=== PATIENT | female | born 1975 | race Hispanic/Latino ===

== ENCOUNTER 2023-03-11 10:11 | Outpatient (CLI) | payer BC, SELFPAY ==
--- NOTE | ~2023-03-11 | CT_ITS ---
EXAMINATION: CT abdomen pelvis w con DATE: 03/11/2023 10:48 INDICATION: Pelvic pain. TECHNIQUE: Computed tomography (CT) of the abdomen and pelvis was performed with 100 mL Omnipaque 350 intravenous contrast. Automated exposure control and iterative reconstruction technique were employe d. The dose-length product was 718.29 mGy-cm. COMPARISON: CT abdomen and pelvis 06/11/2012 FINDINGS: The visualized portions of the lung bases are clear without pneumonia or pleural effusion. The heart size is normal. No pericardial effusion. There is a small sliding hiatal hernia. The liver, gallbladder, spleen, pancreas, adrenal glands, and right kidney are normal. There is focal volume lo ss of left kidney. There are multiple uterine fibroids measuring up to 3.6 cm. There are no dilated l oops of bowel. The appendix is normal. There are no pathologically enlarged lymph nodes. There is no free intraperitoneal fluid. There is mild thoracic and lumbar spondylosis. There is mild osteoarthrit is of the hips. IMPRESSION: 1. Uterine fibroids. 2. Small sliding hiatal hernia. Reviewed, dictated and finalized at location E. 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
[2023-03-11 10:42] LABS: Estimated Glomerular Filt Rate > 60
== END 2023-03-11 10:12 | disposition home or self-care (01) ==
PROVIDERS: PCP Physician Assistant; Visit Provider Physician Assistant
DX: R10.2 Pelvic and perineal pain (principal); D25.9 Leiomyoma of uterus, unspecified; K44.9 Diaphragmatic hernia without obstruction or gangrene
CPT/HCPCS: 74177; Q9967

== ENCOUNTER 2023-03-17 16:05 | Outpatient (CLI) | payer BC, SELFPAY ==
--- NOTE | ~2023-03-17 | US_ITS ---
EXAMINATION: US thyroid DATE: 03/17/2023 17:19 INDICATION: Pain in throat. TECHNIQUE: Multiple ultrasound images of the thyroid were obtained. COMPARISON: Thyroid ultrasound 05/07/2010 FINDINGS: The right thyroid lobe measures 4.4 x 1.7 x 2.0 cm. The left thyroid lobe measures 3.6 x 1.4 x 1.8 c m. In the right thyroid lobe, there is a 2 mm nodule. IMPRESSION: 1. Small thyroid nodule, likely not clinically significant. No follow-up is needed. Reviewed, dictated and finalized at location A. 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 Small thyroid nodule, likely not clinically significant. No follow-up is nee ded.
== END 2023-03-17 16:06 | disposition home or self-care (01) ==
PROVIDERS: PCP Physician Assistant; Visit Provider Physician Assistant
DX: E04.1 Nontoxic single thyroid nodule (principal)
CPT/HCPCS: 76536

== ENCOUNTER 2025-04-06 16:44 | Emergency (ER) | payer BC, SELFPAY ==
[2025-04-06 16:51] VITALS: BP 156/82; PULSE 82; RESP 16; TEMP 36.7; O2SAT 100
[2025-04-06 19:55] VITALS: BP 136/76; PULSE 71; RESP 18; TEMP 36.6; O2SAT 99
--- NOTE | 2025-04-06 20:12 | PC.NURSE ---
Dr. Crawford at bedside assessing pt.
--- NOTE | 2025-04-06 20:36 | ED_ITS ---
HPI - Ear Problem General Chief complaint: Ear Stated complaint: left ear pain, on meds from PCP but worsening Time Seen by Provider: 04/06/25 20:06 History of Present Illness HPI Narrative: Patient is a 49-year-old female who presents ER with left ear pain for. Worsening over last 3 days. Had been on cephalexin for a pimple on her buttock but that has since resolved. She was then placed on amoxicillin 500 and has only had 1 capsule that. No fevers or chills. Causes some achiness to the left head and neck. Had a similar infection in May of this year. Related Data Home Medications ?Medication ?Instructions ?Recorded ?Confirmed ?Last Taken ?Type lisinopril 20 mg tablet 20 mg PO DAILY 11/19/2211/02 Unknown History Allergies Allergy/AdvReac Type Severity Reaction Status Date / Time No Known Allergies Allergy Verified 04/06/25 19:53 Review of Systems Constitutional: Constitutional: Reports no additional constitutional complaints ENT: Reports system reviewed and no additional complaints, except as documented Musculoskeletal: Musculoskeletal: Reports no additional musculoskeletal complaints Neurologic: Reports system reviewed and no additional complaints, except as documented PMFSH Past Medical History Medical History (Updated 04/06/25 @ 20:41 by Sergio Crawford MD) Hypertension Family History Family History Unknown Hypertension Arthritis Social History Social History Smoking status: Never smoker Exam Narrative: GENERAL: Well-appearing, well-nourished, and in no acute distress. HEAD: Normocephalic, atraumatic. ENT: Mucous membranes moist. Otitis media left side with what appears to be some purulent discharge behind the eardrum. Normal ear canal. Normal right sided your exam. No mastoid tenderness bilaterally. Neck: No lymphadenopathy anteriorly. Mild left trapezius discomfort. EXTREMITIES: Normal range of motion. No edema. SKIN: Warm, dry, no rash. NEURO: Alert and oriented x3. PSYCH: Normal mood and affect. Course Course Emergency Course: Will start on Augmentin for broader spectrum coverage. [place] for pain. Discharge. Vital Signs Vital signs: Vital Signs Temperature 98.0 F 04/06/25 16:51 Pulse Rate 82 04/06/25 16:51 Respiratory Rate 16 04/06/25 16:51 Blood Pressure 156/82 H 04/06/25 16:51 Pulse Oximetry 100 04/06/25 16:51 Oxygen Delivery Room Air 04/06/25 16:51 Temperature 97.8 F 04/06/25 19:55 Pulse Rate 71 04/06/25 19:55 Respiratory Rate 18 04/06/25 19:55 Blood Pressure 136/76 04/06/25 19:55 Pulse Oximetry 99 04/06/25 19:55 Oxygen Delivery Room Air 04/06/25 16:51 MDM Differential Diagnosis Differential Diagnosis: Otitis media, otitis externa, mastoiditis, PA Discharge Plan Discharge Clinical Impression: Otitis media Patient Disposition: Home Condition: Stable Instructions: Antibiotic Form, Ear Infection (ED) Additional Instructions: Return the ER if you have worsening pain, you cannot keep down food/water/medication, or you have additional concerns. Follow-up with an ENT for further treatment. Patient Language: New Zealander Prescriptions: New hydrocodone-acetaminophen 5-325 mg tablet 1 tablet PO Q6H PRN (Reason: pain) Qty: 12 0RF amoxicillin-pot clavulanate 875-125 mg tablet 1 tablet PO Q12H Qty: 14 0RF No Action lisinopril 20 mg tablet 20 mg PO DAILY hydrocodone-acetaminophen 5-325 mg tablet 1 tablet PO Q6H PRN (Reason: pain) Qty: 30 0RF Follow-up/Referrals: Naun Levin MD [Physician, Ear, Nose, Throat] - 1 Week UNKNOWN,DOCTOR [Primary Care Provider]
--- OUTSIDE RECORDS SUMMARY | 2025-04-06 20:36 | XMS_ITS | Clinical Summary ---
Author Organization [facility] [employer] Address [address] [place] [address] Care Team Providers Care Label Fuser Tender Name Role Phone Pedro Canas PA-C Primary Care Provider [phone] Source Comments [facility],non-owned Affiliates and Associated Physician Practices is amultiple site organization consisting of ambulatory clinics and hospital sitesin [place] and [place]. This disclosure is being madepursuant to the Care Everywhere program and may not contain all information available regarding this patient. Last updated 18.[facility] [employer] Allergies No known active allergies Medications * Be aware that medications may not be up to date on this document. Alwaysverify current medications with the patient. lisinopril (Prinivil; Zestril) 20 MG tablet Take 1 (one) tablet by mouth once daily Active fish oil/omega-3 fatty acids (Promega;Cardi- [place] 3) 1000 MG capsule Take 1 (one) capsule by mouth 3 times daily with meals Active acetaminophen (Tylenol) 500 MG tablet Take 1 (one) tablet by mouth every 6 hours as needed Active albuterol HFA (Proventil; Ventolin; Proair) 108 (90 Base) MCG/ACT inhaler Inhale 2 (two) puffs by mouth every 4 hours as needed Active amoxicillin-cla vulanate (Augmentin) 875-125 MG tablet Take 1 (one) tablet by mouth 2 times daily with morning and evening meal Active atorvastatin (Lipitor) 40 MG tablet Take 1 (one) tablet by mouth at bedtime Active azithromycin (Zithromax) 250 MG tablet Take 2 (two) tablets by mouth once daily Active Ciprodex 0.3-0.1 % otic suspension Instill 4 (four) drops into both ears 2 times daily 08/29/2024 Active cyclobenzaprine (Flexeril) 10 MG tablet Take 1 (one) tablet by mouth at bedtime Active famotidine (Pepcid) 20 MG tablet Take 1 (one) tablet by mouth 2 times daily Active acetic acid-hydrocorti sone (Vosol-HC) 2-1 % otic solution Instill 3 (three) drops into both ears 4 times daily 09/14/2024 Active lisinopril-hydr oCHLOROthiazide (Prinzide; Zestoretic) 10-12.5 MG tablet Take 1 (one) tablet by mouth every morning Active naproxen (Naprosyn) 500 MG tablet Take 1 (one) tablet by mouth 2 times daily with morning and evening meal Active omeprazole (PriLOSEC) 20 MG capsule Take 1 (one) capsule by mouth once daily Active acetic acid-hydrocorti sone (Vosol-HC) 2-1 % otic solution Instill 3 (three) drops into both ears 3 times daily 10 mL 09/20/2024 Active Active Problems Problem Noted Date Diagnosed Date Intramural leiomyoma of uterus 07/27/2016 Polycystic ovaries 07/27/2016 Proteinuria 03/28/2013 Resolved Problems Problem Noted Date Diagnosed Date Resolved Date Right ear impacted cerumen 09/20/2024 0 10/04/2024 Immunizations Immunization Administration Dates Next Due TDAP (7yrs+) 04/07/2023 Social History Tobacco Use Types Packs/Day Years Used Date Smoking Tobacco: Never Smokeless Tobacco: Never Comments No Sex and Gender Information Value Date Recorded Sex Assigned at Not on file 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 Gender Identity Not on file Sexual Orientation Not on file Last Filed Vital Signs Vital Sign Reading Time Taken Comments Blood Pressure 135/81 09/20/2024 10:48 AM CDT Pulse 78 09/20/2024 10:48 AM CDT Temperature 36.8 C (98.3 F) 02/16/2024 10:31 AM CDT Respiratory Rate 17 08/14/2019 2:00 PM CDT Oxygen Saturation 99% 02/16/2024 10:31 AM CDT Inhaled Oxygen Concentration - - Weight 82.1 kg (181 lb) 09/20/2024 10:48 AM CDT Height 165.1 cm (5' 5) 08/14/2019 2:00 PM CDT Body Mass Index 30.12 08/14/2019 2:00 PM CDT Plan of Treatment Health Maintenance Due Date Last Done Comments COLOGUARD (AGES 45-75) - COL ON CA SCREENING 1977 COLON MONITORING 1977 COLONOSCOPY - COLON CA SCREENING 1977 CT COLONOGRAPHY - COLON CA SCREENING 1977 Colorectal Cancer Screening 1977 FIT - COLON CA SCREENING 1977 FLEX SIG - COLON CA SCREENING 1977 HIV SCREENING 1992 HEPATITIS C SCREENING 07/07/1995 HEPATITIS B VACCINE (1 of 3 - 19+ 3-dose series) 1996 PAP SMEAR 1998 MAMMOGRAM 06/13/2022 06/13/2020, 06/13/2020, 06/07/2019 DEPRESSION SCREENING 05/04/2024 COVID-19 VACCINE (3 - 2024-2 6 season) 2025 10/29/2020, 10/06/2020 INFLUENZA VACCINE (#1) 2025 ZOSTER VACCINE (1 of 2) 07/12/2027 DTAP/TDAP/TD VACCINES (2 - T d or Tdap) 04/07/2033 04/07/2023 HIB VACCINE Aged Out No longer eligi ble based on patient's age to complete this topic HPV VACCINE Aged Out No longer eligi ble based on patient's age to complete this topic MENINGOCOCCAL (Group B) VACCINE SHARED DECISION-MAKING Aged Out No longer eligible based on patient's age to complete this topic MENINGOCOCCAL GROUPS A/C/Y/W VACCINE Aged Out No longer eligible b ased on patient's age to complete this topic PNEUMOCOCCAL VACCINE Aged Out No long er eligible based on patient's age to complete this topic Insurance [facility] Care Teams Label Fuser Tender Relationship Specialty Start Date End Date Pedro Cansa PA-C [address] [place] [id number] PCP - General 02/02/24
--- OUTSIDE RECORDS SUMMARY | 2025-04-06 20:36 | XMS_ITS | Continuity of Care Document ---
[facility] Address [address] [place] [address] Care Team Providers Care Er Tech Name Role Phone SIMEON RAINEY Primary Care Provider ASIF DANIEL [employer] Instructor Assessment No assessment recorded. Plan of Treatment Reminders Order Date Submit Date Provider Last Modified By Organization Details Last Modified Time Details Appointments None recorded. Lab None recorded. Referral None recorded. Procedures None recorded. Surgeries None recorded. Imaging None recorded. Medication Orders Depo-Medro l 40 mg/mL suspension for injection 2024 025 [email or web address] Not available 13:46:12 ketorolac 30 mg/mL (1 mL) injection solution 2024 025 [email or web address] Not available 13:45:22 Patient TargetsNo targets recorded. Patient Instructions Encounter Date Encounter Id Patient Instructions Last Modified By Organization Details Last Modified Time 03/27/2025 [id number] A healthy lifestyle: care instructions [email or web address] Not available 03/27/2025 12:58:20 Reason for Referral None Reported. Problems Name Problem SNOMED Code Status Onset Date Resolution Date Notes Provider Name and Address Organization Details Recorded Time Right lower quadrant pain 386769611 Completed 12/20/2020 ANGELICA BOJORQUEZ Attn: Accounting ,[address] [place], [address] , [facility] 10:39:33 Fatigue 61852240 Completed 02/23/2019 ANGELICA BOJORQUEZ Attn: Accounting ,[address] [facility], [place], [place], [address] [place] [address] , [place] - [facility] 9 11:32:35 Hypergly cemia 60044910 Completed 12/20/2020 ANGELICA BOJORQUEZ Attn: Accounting ,[address] [facility], [place], [place], [address] [place] [address] , [facility] 1 10:39:28 Constipa tion 22596797 Active Zahraa Jaimes PA-C Attn: Accounting ,[address] [facility], [place], [place], [address] [place] [address] , [facility] 6 14:35:37 Impaired glucose toleranc e 3542140 Active Zahraa Jaimes PA-C Attn: Accounting ,[address], [place], [address] [place] [address] , [facility] 6 14:14:38 Disorder of ovary 4980028 Active Zahraa Jaimes PA-C Attn: Accounting ,[address], [place], [address] [place] [address] , [facility] 6 14:14:38 Excessiv e cerumen in ear canal 202940083 Completed 02/23/2019 ANGELICA BOJORQUEZ Attn: Accounting ,[address], [place], [address] [place] [address] , [place] [facility] 9 11:31:57 Bacteria l urethrit is 288871696 Completed 02/23/2019 ANGELICA BOJORQUEZ Attn: Accounting ,[address], [place], [address] [place] [address] , [place] [facility] 9 11:32:19 Uterine leiomyom a 51798389 Active Zahraa Jaimes PA-C Attn: Accounting ,[address], [place], [address] [place] [address] , [facility] 6 14:14:38 Dysmenor noah 528812629 Active Zahraa Jaimes PA-C Attn: Accounting ,[address], [place], [address] [place] [address] , [place] [facility] 6 14:14:38 Dysfunct ional uterine bleeding Active Zahraa Jaimes PA-C Attn: Accounting ,[address] [facility], [place], [address] , [place] [facility] 14:14:38 Gastroes ophageal reflux disease 923388189 Active Zahraa Jaimes PA-C Attn: Accounting ,[address] [facility], [place], [address] , [place] [facility] 13:55:04 Hyperlip idemia 53095299 Active STANFORD PARDO PA-C Attn: Accounting ,[address] [facility], [place], [address] , [place] [facility] 10:19:20 Vulvitis 14120263 Completed 02/23/2019 ANGELICA BOJORQUEZ Attn: Accounting ,[address] 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, [place], [address] , [place] [facility] 10:55:21 Obesity 929902011 Completed 201610/13/2017 Zahraa Jaimes PA-C Attn: Accounting ,[address] [facility], [place], [address] , [place] [facility] 12:56:11 Body mass index 30+ - obesity 386215321 Active 2017 Zahraa Jaimes PA-C Attn: Accounting ,[address] [place], [address] , [place] [facility] 12:57:04 Pain in left knee Active 2017 Zahraa Jaimes PA-C Attn: Accounting ,[address] [place], [address] , [place] [facility] 13:39:13 Bladder muscle dysfunct ion - overacti ve Active 2017 Juan valdez, [place] - [facility] 12:37:40 Internal hemorrho ids 80694707 Active 2020 Seen on colonosc opy 06/2020 ANGELICA BOJORQUEZ Attn: Accounting ,[address] [facility], [place], [address] , [place] [facility] 14:52:19 Screenin g for malignan t neoplasm of colon Active 06/2020 colonosc opy showed hyperpla stic polyp in the sigmoid colon ANGELICA BOJORQUEZ Attn: Accounting ,[address] [facility], [place], [place], [address] [place] [address] , [facility] 14:52:51 [facility] l hyperten meredith 23888852 Active 2024 STANFORD PRADO PA-C Attn: Accounting ,[address] [facility], [place], [address] , [place] [facility] 10:19:13 History of calculus of kidney 525980125 Active 2024 STANFORD PRADO PA-C Attn: Accounting ,[address] [facility], [place], [address] , [facility] 5 10:19:37 Problem Notes None recorded. Procedures Surgical History Date Name Laterality Status Provider Name and Address Organization Details Recorded Time 3 Date of Last Pap Smear completed Mechelle Ramirez [place] [facility] 08/21/2022 11:06:55 2 Date of Last Mammogram completed [place] [facility] 08/21/2022 11:07:21 1 colonoscopy completed ANGELICA BOJORQUEZ Attn: Accounting,[address] [facility], [place], [address], [place] [facility] 07/12/2020 14:53:38 0 Most Recent Mammogram completed M[place] Ramirez [place] [facility] 05/30/2020 13:04:41 8 Endometrial Ablation completed [place]hel[place] Ramirez [place] [facility] 05/25/2018 10:32:30 Imaging Results None recorded. Procedure Notes None recorded. Medical Equipment None Reported. Allergies No known drug allergies Medications Name Sig Start Date Stop Date Status Note LastModified by Organization Details LastModified Time multivita min tablet TAKE 1 TABLET BY MOUTH EVERY DAY 08/07 completed Not Available Not Available Not Available losartan 50 mg tablet Take 1 tablet every day by oral route. 09/25 completed per caridolo gy - taking both losartan and lisinopr il Not Available Not Available Not Available cyclobenz aprine 10 mg tablet TAKE 1 TABLET BY MOUTH EVERY DAY AT BEDTIME FOR 14 DAYS 02/27 completed Not Available Not Available Not Available amoxicill in 500 mg capsule 02/08 completed Not Available Not Available Not Available atorvasta tin 40 mg tablet TAKE 1 TABLET BY MOUTH EVERY DAY AT BEDTIME active Not Available Not Available No t Available azelastin e 0.05 % eye drops 09/04 completed Not Available Not Available Not Available Depo-Medr ol 40 mg/mL suspensio n for injection Take 40 mg by injectio n route. 2024 active Not Available Not Available Not Avai lable tizanidin e 2 mg tablet 10/24 completed Not Available Not Available Not Available clindamyc in HCl 300 mg capsule TAKE ONE CAPSULE BY MOUTH THREE TIMES DAILY UNTIL ALL TAKEN 02/13 completed Not Available Not Available Not Available cetirizin e 10 mg tablet TAKE ONE TABLET BY MOUTH DAILY 12/20 completed Not Available Not Available Not Available azithromy misael 250 mg tablet TAKE 2 TABLETS (500 MG) BY ORAL ROUTE ONCE DAILY FOR 1 DAY THEN 1 TABLET (250 MG) BY ORAL ROUTE ONCE DAILY FOR 4 DAYS 02/27 completed Not Available Not Available Not Available ibuprofen 800 mg tablet TAKE 1 TABLET BY MOUTH EVERY 8 HOURS 01/10 completed Not Available Not Available Not Available fluconazo le 150 mg tablet TAKE 1 TABLET BY MOUTH EVERY 72 HOURS FOR 6 DAYS DIRECTED 08/21 completed Not Available Not Available Not Available benzonata te 200 mg capsule TAKE 1 CAPSULE BY MOUTH THREE TIMES DAILY FOR 10 DAYS NEEDED 04/07 completed Not Available Not Available Not Available hydrocodo ne 5 mg-acetam inophen 325 mg tablet TAKE 1 TABLET BY MOUTH EVERY 6 HOURS NEEDED FOR PAIN 03/05 completed Not Available Not Available Not Available ondansetr on HCl 8 mg tablet 02/23 completed Not Available Not Available Not Available fluconazo le 200 mg tablet TAKE 1 TABLET BY MOUTH NOW AND 72 HOURS LATER 12/29 completed Not Available Not Available Not Available meloxicam 15 mg tablet TAKE 1 TABLET BY MOUTH EVERY DAY WITH MEALS 08/26 completed Not Available Not Available Not Available phenazopy ridine 200 mg tablet Take 1 tablet 3 times a day by oral route for 14 days. 09/04 completed Not Available Not Available Not Available metronida zole 0.75 % (37.5 mg/5 gram) vaginal gel Insert 1 applicat orful every day by vaginal route for 5 days. 02/23 completed Not Available Not Available Not Available lisinopri l 20 mg tablet TAKE 1 TABLET BY MOUTH EVERY DAY active Not Available Not Available No t Available famotidin e 40 mg tablet Take 1 tablet every day by oral route. 09/04 completed Not Available Not Available Not Available Anucort-H C 25 mg supposito ry 12/20 completed Not Available Not Available Not Available Debrox 6.5 % ear drops INSTILL 5 DROPS INTO AFFECTED EAR(S) BY OTIC ROUTE 2 TIMES PER DAY 2024 active Not Available Not Available Not Avai lable clobetaso l 0.05 % topical cream 12/13 completed Not Available Not Available Not Available sumatript an 50 mg tablet Take 1 tablet at the onset of migraine . If no relief in 2 hours take a second tablet. Not to exceed 200mg in 24 hours. 05/11 completed Not Available Not Available Not Available penicilli n V potassium 500 mg tablet active Not Available Not Available Not Available metronida zole 500 mg tablet Take 1 tablet twice a day by oral route. 02/23 completed Not Available Not Available Not Available acetamino phen 300 mg-codein e 30 mg tablet TAKE 1 TO 2 TABLETS BY MOUTH FOUR TIMES DAILY NEEDED FOR PAIN 02/11 completed Not Available Not Available Not Available ciproflox acin 500 mg tablet 05/25 completed Not Available Not Available Not Available sulfameth oxazole 800 mg-trimet hoprim 160 mg tablet TAKE 1 TABLET BY MOUTH TWICE DAILY FOR 7 DAYS 08/26 completed Not Available Not Available Not Available omeprazol e 40 mg capsule,d elayed release TAKE 1 CAPSULE BY MOUTH EVERY DAY 09/04 completed Not Available Not Available Not Available tramadol 50 mg tablet TAKE 1 TABLET BY MOUTH EVERY 12 HOURS FOR 5 DAYS NEEDED FOR SEVERE PAIN 08/17 completed Not Available Not Available Not Available acetamino phen 500 mg tablet TAKE 2 TABLETS BY MOUTH EVERY 6 HOURS FOR 10 DAYS NEEDED active Not Available Not Available No t Available triamcino lone acetonide 0.1 % topical cream APPLY GRAM TOPICALL Y TO THE AFFECTED AREA TWICE DAILY 12/29 completed Not Available Not Available Not Available ketorolac 30 mg/mL (1 mL) injection solution Inject 1 mL every day by intramus cular route. 2024 active Not Available Not Available Not Avai lable amoxicill in 500 mg tablet TAKE 1 TABLET BY MOUTH TWICE DAILY WITH MEALS FOR 10 DAYS 04/07 completed Not Available Not Available Not Available amoxicill in 875 mg tablet Take 1 tablet every 12 hours by oral route as directed for 7 days. 05/11 completed Not Available Not Available Not Available famotidin e 20 mg tablet TAKE 1 TABLET BY MOUTH TWICE DAILY active Not Available Not Available No t Available hydrocort isone-drea tic acid 1 %-2 % ear drops 3-5 gtt in ear(s) q4-6h w/ ear wick x24h, then 5 gtt q6-8h x 7 days 2024 active Not Available Not Available Not Avai lable benzonata te 100 mg capsule TAKE 1 CAPSULE BY MOUTH EVERY 8 HOURS NEEDED 12/29 completed Not Available Not Available Not Available cephalexi n 500 mg capsule 10/13 completed Not Available Not Available Not Available erythromy misael 5 mg/gram (0.5 %) eye ointment 09/04 completed Not Available Not Available Not Available nystatin 100,000 unit/gram topical cream APPLY TOPICALL Y TO THE AFFECTED AREA TWICE DAILY FOR 7 TO 10 DAYS 12/29 completed Not Available Not Available Not Available prednison e 50 mg tablet active Not Available Not Available Not Available lisinopri l 30 mg tablet TAKE 1 TABLET BY MOUTH EVERY DAY IN THE MORNING 08/05 completed Not Available Not Available Not Available omeprazol e 20 mg capsule,d elayed release TAKE 1 CAPSULE BY MOUTH EVERY DAY 01/10 completed Not Available Not Available Not Available ceftriaxo ne 500 mg solution for injection Take 500 mg every day by injectio n route for 1 day. 02/27 completed Not Available Not Available Not Available ergocalci ferol (vitamin D2) 1,250 mcg (50,000 unit) capsule TAKE 1 CAPSULE BY MOUTH EVERY WEEK DIRECTED 09/25 completed Not Available Not Available Not Available lisinopri l 10 mg-hydroc hlorothia zide 12.5 mg tablet TAKE 1 TABLET BY MOUTH EVERY DAY IN THE MORNING active Not Available Not Available No t Available methylpre dnisolone 4 mg tablets in a dose pack FOLLOW PACKAGE DIRECTIO NS DIRECTED NEEDED 02/27 completed Not Available Not Available Not Available albuterol sulfate HFA 90 mcg/actua tion aerosol inhaler INHALE 2 PUFFS BY MOUTH EVERY 4 HOURS NEEDED 08/17 completed Not Available Not Available Not Available fluticaso ne propionat e 50 mcg/actua tion nasal spray,sherri pension SHAKE LIQUID AND USE 1 TO 2 SPRAYS IN EACH NOSTRIL TWICE DAILY 12/20 completed Not Available Not Available Not Available dicyclomi ne 10 mg capsule TAKE ONE CAPSULE BY MOUTH FOUR TIMES DAILY NEEDED FOR ABDOMINA L PAIN 12/29 completed Not Available Not Available Not Available naproxen 500 mg tablet TAKE 1 TABLET BY MOUTH TWICE DAILY WITH FOOD active Not Available Not Available No t Available amoxicill in 875 mg-potass ium clavulana te 125 mg tablet TAKE ONE TABLET BY MOUTH EVERY TWELVE HOURS FOR 7 DAYS FOR INFECTIO N 02/27 completed Not Available Not Available Not Available oxycodone 5 mg tablet 05/25 completed Not Available Not Available Not Available Microgest in 05/23 (21) 1 mg-20 mcg tablet Take 1 tablet by mouth every day as directed 12/13 completed Not Available Not Available Not Available Ciprodex 0.3 %-0.1 % ear drops,sherri pension INSTILL 4 DROPS INTO AFFECTED EAR(S) BY OTIC ROUTE 2 TIMES PER DAY FOR 7 DAYS 02/27 completed Not Available Not Available Not Available nitrofura ntoin monohydra te/macroc rystals 100 mg capsule TAKE 1 CAPSULE BY MOUTH EVERY 12 HOURS FOR 5 DAYS DIRECTED 05/12 completed Not Available Not Available Not Available calcium 600 mg (as carbonate )-vitamin D3 10 mcg (400 unit) tablet TAKE 1 TABLET BY MOUTH TWICE DAILY 08/07 completed Not Available Not Available Not Available Royal Oil 1,000 mg capsule Take 1 capsule every day by oral route in the evening. 05/11 completed Not Available Not Available Not Available Tilia Fe 1-20 (5)/1-30( 7)/1mg-35 mcg(9) tablet Take 1 tablet every day by oral route for 28 days. active Not Available Not Available No t Available vitamin E (dl, acetate) 180 mg (400 unit) capsule Take 1 capsule twice a day by oral route. 05/11 completed Not Available Not Available Not Available Lo Loestrin Fe 1 mg-10 mcg (24)/10 mcg (2) tablet Take 1 tablet every day by oral route. 12/13 completed Not Available Not Available Not Available Metamucil Sugar-Nicanor e (aspartam e) 3.4 gram/5.8 gram oral powder Take 1.7 g twice a day by oral route as directed for 30 days. 12/20 completed Not Available Not Available Not Available Myrbetriq 25 mg tablet,ex tended release Take 1 tablet every day by oral route. 02/23 completed Not Available Not Available Not Available Myrbetriq 50 mg tablet,ex tended release Take 1 tablet every day by oral route. 09/04 completed Not Available Not Available Not Available calcium 600 mg (as carbonate )-vitamin D3 20 mcg (800 unit) tablet Take 1 tablet twice a day by oral route. 09/04 completed Not Available Not Available Not Available Linzess 145 mcg capsule Take 1 capsule every day by oral route for 30 days. 09/04 completed Not Available Not Available Not Available Linzess 290 mcg capsule active Not Available Not Available Not Available ID NOW COVID-19 Test Kit USE DIRECTED 12/20 completed Not Available Not Available Not Available Vitals Date Recorded Body height Body mass index (BMI) Body weight Oxygen saturation Heart rate Body temperature Systolic And Diastolic Provider Name and Address Organization Details Last Updated DateTime 5 165.1 cm 31.6 kg/m2 11784.5 5 g 98 % 83 /min 98.1 [degF] 112/76 mm[Hg] Yeimy Watters [place] - [facility] 12:26:14 Social History Question Answer Notes LastModified by Organizat ion Details LastModified Time Tobacco Smoking Status Never Smoker Jose Mohan [place] null, [place] - [facility] 10/25/2014 12:13:42 Do You Have An Advance Directive? No Information n ot available 12/21/2014 What Is Your Level Of Caffeine Consumption? Moderate Information not available 10/25/2014 How Much Tobacco Do You Chew? None Information not available 12/21/2014 In The 14 Days Before Symptom Onset, Have You Had Close Contact With A Laboratory-confirm ed COVID-19 While That Case Was Ill? No Information n ot available 09/25/2022 In The 14 Days Before Symptom Onset, Have You Had Close Contact With A Person Who Is Under Investigation For COVID-19 While That Person Was Ill? No Information not available 09/25/2022 Have You Been To An Area Known To Be High Risk For COVID-19? No Information not available 09/25/2022 What Type Of Diet Are You Following? REGULAR Information n ot available 12/21/2014 Which Illicit Or Recreational Drugs Have You Used? None Information not available 12/21/2014 Education 12 Information no t available 12/21/2014 Live Alone Or With Others? With Others Information not available 12/21/2014 What Was The Date Of Your Most Recent Tobacco Screening? 02/27/2025 [email or web address] Information not available 02/27/2025 How Many Children Do You Have? 3 Information not available 12/21/2014 Performs Monthly Self-breast Exam? Yes Information no t available 12/21/2014 Do You Use Protection During Sex? Usually [email or web address] Information not available 12/14/2015 What Is Your Relationship Status? Information not available 12/21/2014 Seat Belts Used Routinely Yes Information not available 12/21/2014 Are You Sexually Active? Yes Information not available 12/21/2014 Do You Have Smoke And Carbon Monoxide Detectors In Your Home? Yes Information not available 08/21/2022 At What Age Did You Start Smoking Tobacco? 0 Information not available 12/21/2014 Are You Passively Exposed To Smoke? No Information no t available 08/21/2022 How Much Tobacco Do You Smoke? No Information not available 12/21/2014 General Stress Level Low Information not available 12/21/2014 Do You Use Sunscreen Routinely? Yes Information not available 12/21/2014 Has Tobacco Cessation Counseling Been Provided? Yes Information not available 08/21/2022 On What Date Was Tobacco Cessation Counseling Provided? 05/12/2024 [email or web address] Information not available 05/12/2024 How Many Years Have You Smoked Tobacco? 0 Information not available 12/21/2014 Sex: Female Functional Status Question Answer Note LastModified by Organizat ion Details LastModified Time Do you use any illicit or recreational drugs? No Information not available 08/21/2022 Do you or have you ever used any other forms of tobacco or nicotine? No Information not available 08/21/2022 What is your level of alcohol consumption? None Information not available 10/25/2014 Do you or have you ever used smokeless tobacco? Never used smokeless tobacco Information not available 05/11/2020 Are you currently employed? 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 Never used electronic cigarettes Information not available 05/11/2020 What is your exercise level? Moderate Information not available 12/21/2014 Mental Status None recorded. Family History Relationship Description Onset Age of this Age Resolved Age Notes LastModified by Organization Details LastModified Time Mother Hypertensive disorder [email or web address] Not available 01/22 14:21:06 Medical History Condition Response Heart Problems N Other Y Breast Cancer N Thyroid Problems N Kidney or Bladder Problems N GI Problems N Lung Disease N Depression N Acne N Breast Problem N Skin Problems Y Eating Disorder N Anemia N Anesthesia Complications N Headaches/Migraines N Anxiety Disorder N Diabetes N Ovarian Cancer N Blood Transfusions N Arthritis N Polyps N Infertility N Acid Reflux (GERD) N Cancer N Stroke N Abuse/Domestic Violence N Asthma N Endometriosis N High Cholesterol N Hepatitis N Heart Disease N Fibromyalgia N Headaches Y Pre-Eclampsia N Hypertension N Osteoporosis N Kidney Disease N Gynecological History Statement/Question Response Abnormal Pap N Date of Last Mammogram 02/10/2022 Flow Moderate Date of LMP 01/11/2024 On BCP's at Conception? Y STIs/STDs N HPV Vaccine N Duration of Flow (days) 4 Most Recent Mammogram 06/30/2019 Age at Menarche 14 Current Control Method None Age at First Child 21 Frequency of Cycle (Q days) 28 Sexually Active? Y Menses Monthly Y Date of Last Pap Smear 08/21/2022 Sexual Problems? Y LMP Definite Desired Control Method N/A Obstetrics History GPAL:G 3 P 3 0 0 3 Type Value Multiple Births 0 Full Term 3 Induced 0 Spontaneous 0 Premature 0 Living 3 Ectopics 0 Total 3 Immunizations Vaccine Type Date Status Note Provider [place] e and Address Organization Details Recorded Time COVID-19, mRNA, LNP-S, PF, 30 mcg/0.3 mL dose 10/06/2020 completed Teresa Maurice [place], [place] [facility] 03/05/2023 09:34:55 COVID-19, mRNA, LNP-S, PF, 30 mcg/0.3 mL dose 10/29/2020 completed Teresa Maurice [place], [place] [facility] 03/05/2023 09:34:55 Tdap 04/07/2023 completed STANFORD PRADO PA-C Attn: Accounting[address] [place], [address], [place] [facility] 04/07/2023 12:39:56 Past Encounters Encounter ID Performer Location Encounter Start Date Encounter Closed Date Diagnosis/Indication Diagnosis SNOMED-CT Code Diagnosis ICD10 Code Diagnosis IMO Codes Diagnosis Note [id number] [facility] [address] [place] [phone] 02/27/2025 12:46:30 02/28/2025 13:17:35 Excessive cerumen in ear canal 991664717 H61.21 10234950 Start Debrox 5 drops to right ear 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 2830653924 824078 B36.9 H62.42 57236511 Start hydrocorti sone acetic acid 1% 2% 3-5 drops every 4-6 hours Obese class I 4776891993 57626 E66.811 E66.3 9950003790 BMI 31 Right uppe r quadrant pain 779490131 R10.11 [id number] Labs today EUS gallbladde r ordered [id number] Latanya Kirkpatrick MD [facility] [address] [place] [address] [phone] 03/27/2025 12:15:10 04/04/2025 09:28:38 Disorder of left sciatic nerve 9354239478 20135 M54.32 554717 Depo 40mg todayKenal og 30mg todayc/w acetaminop hen 500mg PRN Obese class I 9217683800 24771 E66.811 E66.3 9206029074 BMI 31.6 Depression screening 171 288734 Z13.31 7432265 PHQ9- Negative (1 out of 27) Mental hea lth screening 637921301 Z13.30 5443562614 GAD7- Negative (0 out of 21) Health Concerns Section Related Observation LastModified by Organization Detai ls LastModified Time None Recorded Concern Status LastModified by Organization Details LastModified Time None Recorded Payers Encounter Date Sequence Insurance Name Policy Number Policy Hopkins Covered Member ID Hopkins Member ID Guarantor Name 03/27/2025 1 [place] [id number] Isidro Norma [id number] Isidro Green Notes Date Note Type Note Provider Name and Address Organization Details Recorded Time 03/27/2025 text/html ROS as noted in the HPI 49 y/o F here with c/o L leg pain. Pt states she was walking at home when she slipped and over extended L leg. She did not fall and did not lose consciousness. Pt states the pain down her leg feels like as if her leg goes numb and cold and sometimes. Pt has pain with walking and has taken some tylenol to help with pain. STANFORD PRADO PA-C Attn: Accounting,[address] [facility], [place], [address], [place] [facility] 03/28/2025 16:12:33 OBGyn Episode No OBEpisode recorded.
--- OUTSIDE RECORDS SUMMARY | 2025-04-06 20:36 | XMS_ITS | Continuity of Care Document ---
Author Organization [facility] ([facility]) Address [address] [place] [address] Care Team Providers Care Supervisor Payroll Name Role Phone SIMEON RAINEY Primary Care Provider [phone] ASIF DANIEL Enterprise Systems Architect [phone] Assessment Encounter Date Assessment Date Assessment LastModified by Organization Details LastModified Time 02/27/2025 02/27/2025 STEFFEN Wilkinson [email or web address] Not available 02/27/2025 13:33:01 Plan of Treatment Reminders Order Date Submit Date Provider Last Modified By Organization Details Last Modified Time Details Appointments None recorded . Lab amylase + lipase, serum 2024 [facility], [address], [place], [address], 15:56:04 CMP, serum or plasma 2024 [facility], [address], [place], [address], 16:14:37 Referral None recorded . Procedures None recorded . Surgeries None recorded . Imaging US, neeta chester 2024 [facility] ([facility] [address] [place], [address], 16:15:04 Medication Orders Debrox 6.5 % ear drops 2024 [id number], [address], [place], [place], [id number], 13:29:33 hydrocor tisone-a cetic acid 1 %-2 % ear drops 2024 [id number], [address], [place], [place], [id number], 13:29:33 Patient TargetsNo targets recorded. Patient Instructions Encounter Date Encounter Id Patient Instructions Last Modified By Organization Details Last Modified Time 02/27/2025 [id number] A healthy lifestyle: care instructions [email or web address] Not available 02/27/2025 13:29:28 Reason for Referral None Reported. Problems Name Problem SNOMED Code Status Onset Date Resolution Date Notes Provider Name and Address Organization Details Recorded Time Right lower quadrant pain 415303200 Completed 12/20/2020 ANGELICA BOJORQUEZ Attn: Accounting ,[address] [place], [address] , [facility] - [facility] 10:39:33 Fatigue 74100724 Completed 02/23/2019 ANGELICA BOJORQUEZ Attn: Accounting ,[address] [place], [address] , [facility] - [facility] 9 11:32:35 Hypergly cemia 30622998 Completed 12/20/2020 ANGELICA BOJORQUEZ Attn: Accounting ,[address] [place], [address] , [place] [facility] 10:39:28 Constipa tion 24763001 Active Zahraa Jaimes PA-C Attn: Accounting ,[address] [place], [address] , [place] [facility] 6 14:35:37 Impaired glucose toleranc e 4774234 Active Zahraa Jaimes PA-C Attn: Accounting ,[address] [place], [address] , [place] [facility] 6 14:14:38 Disorder of ovary 2917726 Active Zahraa Jaimes PA-C Attn: Accounting ,[address] [facility], [place], [place], [address] [place] [address] , [place] - [facility] 6 14:14:38 Excessiv e cerumen in ear canal 311266148 Completed 02/23/2019 ANGELICA BOJORQUEZ Attn: Accounting ,[address] [facility], [place], [place], [address] [place] [address] , [place] - [facility] 9 11:31:57 Bacteria l urethrit is 089053520 Completed 02/23/2019 ANGELICA BOJORQUEZ Attn: Accounting ,[address] [facility], [place], [place], [address] [place] [address] , [place] [facility] 9 11:32:19 Uterine leiomyom a 67647869 Active Zahraa Jaimes PA-C Attn: Accounting ,[address] [place], [place], [address] [place] [address] , [place] [facility] 6 14:14:38 Dysmenor noah 249485583 Active Zahraa Jaimes PA-C Attn: Accounting ,[address] [place], [place], [address] [place] [address] , [place] [facility] 6 14:14:38 Dysfunct ional uterine bleeding Active Zahraa Jaimes PA-C Attn: Accounting ,[address] [place], [place], [address] [place] [address] , [place] [facility] 6 14:14:38 Gastroes ophageal reflux disease 337427862 Active Zahraa Jaimes PA-C Attn: Accounting ,[address] [place], [place], [address] [place] [address] , [place] [facility] 6 13:55:04 Hyperlip idemia 79223368 Active STANFORD PRADO PA-C Attn: Accounting ,[address] [place], [place], [address] [place] [address] , [place] [facility] 5 10:19:20 Vulvitis 92890345 Completed 02/23/2019 ANGELICA BOJORQUEZ Attn: Accounting ,[address] [facility], [place], [address] , [place] [facility] 9 11:32:27 Allergic disposit ion 717050258 Active 2016 Zahraa Jaimes PA-C Attn: Accounting ,[address] [facility], [place], [address] , [place] [facility] 7 10:55:21 Obesity 400672421 Completed 201610/13/2017 Zahraa Jaimes PA-C Attn: Accounting ,[address] [facility], [place], [address] , [place] [facility] 8 12:56:11 Body mass index 30+ - obesity 677651541 Active 2017 Zahraa Jaimes PA-C Attn: Accounting ,[address] [facility], [place], [address] , [place] [facility] 8 12:57:04 Pain in left knee Active 2017 Zahraa Jaimes PA-C Attn: Accounting ,[address] [facility], [place], [address] , [place] [facility] 8 13:39:13 Bladder muscle dysfunct ion - overacti ve Active 2017 Juan Peralta josé miguel, [place] - [facility] 8 12:37:40 Internal hemorrho ids 75084652 Active 2020 Seen on colonosc opy 06/2020 ANGELICA BOJORQUEZ Attn: Accounting ,[address] [facility], [place], [address] , [place] [facility] 1 14:52:19 Screenin g for malignan t neoplasm of colon Active 06/2020 colonosc opy showed hyperpla stic polyp in the sigmoid colon ANGELICA BOJORQUEZ Attn: Accounting ,[address] [facility], [place], [address] , [place] [facility] 1 14:52:51 [facility] hyperten meredith 81772978 Active 2024 STANFORD PRADO PA-C Attn: Accounting ,[address] [facility], [place], [address] , [facility] 5 10:19:13 History of calculus of kidney 965136066 Active 2024 STANFORD PRADO PA-C Attn: Accounting ,[address] [facility], [place], [address] , [facility] SI 5 10:19:37 Problem Notes None recorded. Procedures Surgical History Date Name Laterality Status Provider Name and Address Organization Details Recorded Time 3 Date of Last Pap Smear completed Mechelle Ramirez MA [facility] 08/21/2022 11:06:55 2 Date of Last Mammogram completed Mechelle Ramirez MA [facility] 08/21/2022 11:07:21 1 colonoscopy completed ANGELICA BOJORQUEZ Attn: Accounting,[address] [facility], [place], [address], [facility] 07/12/2020 14:53:38 0 Most Recent Mammogram completed Mechelle Ramirez MA [facility] 05/30/2020 13:04:41 8 Endometrial Ablation completed Mechelle Ramirez MA [facility] 05/25/2018 10:32:30 Imaging Results None recorded. Procedure [...] day by oral route. 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 [email or web address] Information not available 08/23/2024 Do you or [...] Vaccine Type Date Status Note Provider Sanford ramirez and Address Organization Details Recorded Time COVID-19, mRNA, LNP-S, PF, 30 mcg/0.3 mL dose 10/06/2020 completed Teresa Maurice [place], [place] [facility] 03/05/2023 09:34:55 COVID-19, mRNA, LNP-S, PF, 30 mcg/0.3 mL dose 10/29/2020 completed Teresa Maurice [place], [place] [facility] 03/05/2023 09:34:55 Tdap 04/07/2023 completed STANFORD PRADO PA-C Attn: Accounting,[address] [place], [address], [place] [facility] 04/07/2023 12:39:56 Past Encounters Encounter ID Performer Location Encounter Start Date Encounter Closed Date Diagnosis/Indication Diagnosis SNOMED-CT Code Diagnosis ICD10 Code Diagnosis IMO Codes Diagnosis Note [id number] Latanya Kirkpatrick MD [facility] (Adult Med) [address] [place] [id number] 02/27/2025 12:46:30 02/28/2025 13:17:35 Excessive cerumen in ear canal 765193009 H61.21 33526860 Start Debrox 5 drops to right ear 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 2255347913 981983 B36.9 H62.42 61805466 Start hydrocorti sone acetic acid 1% 2% 3-5 drops every 4-6 hours Obese class I 5087261204 47845 E66.811 E66.3 6243243753 BMI 31 Right uppe r quadrant pain 656003916 R10.11 941379 Labs today EUS gallbladde r ordered Health Concerns Section Related Observation LastModified by Organization Detai ls LastModified Time None Recorded Concern Status LastModified by Organization Details LastModified Time None Recorded Payers Encounter Date Sequence Insurance Name Policy Number Policy Hopkins Covered Member ID Hopkins Member ID Guarantor Name 02/27/2025 1 [facility] ([facility]) [id number] Isidro Green [id number] Isidro Green Notes Date Note Type Note Provider Name and Address Organization Details Recorded Time 02/27/2025 text/html ROS as noted in the HPI 49 y/o F here c/o bilateral ear itching x 3 weeks. STANFORD PRADO PA-C Attn: Accounting,[address] [place], [address], [place] [facility] 02/27/2025 17:51:23 OBGyn Episode No OBEpisode recorded.
[2025-04-06] MEDS: HYDROcodone/acetaminophen (*CRX) 5-325 MG TABLET 1 TAB PO (21:31)
== END 2025-04-06 21:20 | disposition home or self-care (01) ==
PROVIDERS: Emergency Provider Emergency Medicine
DX: H66.92 Otitis media, unspecified, left ear (principal); I10 Essential (primary) hypertension
CPT/HCPCS: 99283; A9270